=== PATIENT | male | born 1960 | race African-American/Black ===

== ENCOUNTER 2021-10-19 13:21 | Outpatient (CLI) | payer MEDICARE ==
[~2021-10-19 13:21] MED LIST: Magnevist 469MG/ML 20 ML VIAL ONE
== END 2021-10-19 13:22 | disposition home or self-care (01) ==
LOC: CSHSPEC 13:21
PROVIDERS: ATTEND Urology
DX: C61 Malignant neoplasm of prostate (principal); Z95.810 Presence of automatic (implantable) cardiac defibrillator; Z90.79 Acquired absence of other genital organ(s)
CPT/HCPCS: 71045; 72197; 82565